=== PATIENT | female | born 1975 | race Hispanic/Latino ===

== ENCOUNTER 2016-05-02 20:18 | Emergency (ER) | payer SELFPAY ==
[2016-05-02] MEDS ORDERED: NACL 0.9% 1000 ML 1,000 ML IV ONE (21:37)
[2016-05-02 22:35] LABS: Basophils % (Auto) 1.2 % (0.0-1.8); Eosinophils % (Auto) 1.7 % (0.0-4.3); Hemoglobin 7.1 gm/dl (10.1-14.3); Mean Corpuscular HGB Conc 30 % (30-34); Platelet Count 563 K/mm3 (140-440); Red Cell Distribution Width 17.6 % (13.2-15.2); White Blood Count 8.2 K/mm3 (4.5-11.0)
[2016-05-02 22:46] LABS: INR 1.03 (0.87-1.13)
[2016-05-02 22:47] LABS: Mean Corpuscular Hemoglobin 18 pg (28-32); Mean Corpuscular Volume 60 fl (79-97); Partial Thromboplastin Time 27.3 Sec. (24.2-36.6)
[2016-05-02 23:00] LABS: Alanine Aminotransferase 8 units/L (7-56); Albumin 4.4 g/dL (3.9-5); Albumin/Globulin Ratio 1.4 %; Alkaline Phosphatase 67 units/L (35-129); Anion Gap 18 mmol/L; BUN/Creatinine Ratio 18.75; Bilirubin,Total 0.2 mg/dL (0.1-1.2); Blood Urea Nitrogen 15 mg/dL (7-17); Carbon Dioxide 23 mmol/L (22-30); Glucose 88 mg/dL (65-100); Lipase 26 units/L (13-60); Potassium 4.7 mmol/L (3.6-5.0); Sodium 139 mmol/L (137-145); Total Protein 7.6 g/dL (6.3-8.2)
[2016-05-03 02:55] VITALS: BP 108/77
--- NOTE | 2016-05-05 18:40 | ED Elopement Review ---
ED Pt Elopement review - Results review Lab results: Laboratory Tests 05/02/16 05/02/16 05/02/16 18:26 22:11 22:11 WBC 8.2 RBC 4.00 Hgb 7.1 L Hct 24.0 L MCV 60 L MCH 18 L MCHC 30 RDW 17.6 H Plt Count 563 H Lymph % (Auto) 22.9 [place] % (Auto) 9.0 H Eos % (Auto) 1.7 Baso % (Auto) 1.2 Lymph # 1.9 [place] # 0.7 Eos # 0.1 Baso # 0.1 Seg Neutrophils % 65.2 Seg Neutrophils # 5.4 PT 13.4 INR 1.03 APTT 27.3 Sodium Potassium Chloride Carbon Dioxide Anion Gap BUN Creatinine Estimated GFR BUN/Creatinine Ratio Glucose Calcium Total Bilirubin AST ALT Alkaline Phosphatase Total Protein Albumin Albumin/Globulin Ratio Lipase Blood Type O POSITIVE Antibody Screen Negative 05/02/16 22:11 WBC RBC Hgb Hct MCV MCH MCHC RDW Plt Count Lymph % (Auto) [place] % (Auto) Eos % (Auto) Baso % (Auto) Lymph # [place] # Eos # Baso # Seg Neutrophils % Seg Neutrophils # PT INR APTT Sodium 139 Potassium 4.7 Chloride 103.0 Carbon Dioxide 23 Anion Gap 18 BUN 15 Creatinine 0.8 Estimated GFR > 60 BUN/Creatinine Ratio 18.75 Glucose 88 Calcium 9.0 Total Bilirubin 0.2 AST 15 ALT 8 Alkaline Phosphatase 67 Total Protein 7.6 Albumin 4.4 Albumin/Globulin Ratio 1.4 Lipase 26 Blood Type Antibody Screen - Call Back decision Pt Call Back Decision: Call pt to return to ED [facility] (history of melena an H&H of 10/31, and tachycardia should be further evaluated)
== END 2016-05-03 10:00 | disposition left against medical advice (07) ==
LOC: ED 20:18
DX: R42 Dizziness and giddiness (principal); R13.10 Dysphagia, unspecified; R19.5 Other fecal abnormalities; Z53.21 Procedure and treatment not carried out due to patient leaving prior to being seen by health care provider
CPT/HCPCS: 36415; 80053; 83690; 85025; 85610; 85730; 86850; 86900; 86901; 93005; 93010